=== PATIENT | female | born 1940 | race Caucasian/White ===

== ENCOUNTER 2017-01-16 16:51 | Inpatient (IN) | payer MEDICARE ==
[~2017-01-16] VITALS: Ht 165.1 cm; Wt 67.1 kg
[2017-01-16] MEDS ORDERED: DOCUSATE SODIUM 100 MG CAP PO PRN (17:15)
[2017-01-16] MEDS ORDERED: ACETAMINOPHEN 500 MG CPLT PO PRN (17:15)
[2017-01-16] MEDS ORDERED: SODIUM CHLORIDE FLUSH PRN IV FLUSH (17:15)
[2017-01-16 17:40] VITALS: BP 147/83; PULSE 80; RESP 20; TEMP 98.3; O2SAT 95
[2017-01-16] MEDS: ENOXAPARIN SODIUM 80 MG/0.8 ML SYRINGE SQ SCH (18:41)
[2017-01-16 18:52] LABS: AUTOMATED NEUTROPHIL # 5.7 TH/MM3 (1.8-7.7); BASOPHIL % 0.4 % (0.0-2.0); EOSINOPHIL # 0.1 TH/MM3 (0-0.4); EOSINOPHIL % 0.6 % (0.0-4.0); HEMO FLAGS DIFF FINAL; LYMPH % 24.9 % (9.0-44.0); LYMPHOCYTE # 2.1 TH/MM3 (1.0-4.8); MEAN CORPUSCULAR HEMOGLOBIN 28.9 PG (27.0-34.0); MEAN CORPUSCULAR HGB CONC 32.8 % (32.0-36.0); MONO % 8.1 % (0.0-8.0); PLATELET COUNT 265 TH/MM3 (150-450); RED CELL DISTRIBUTION WIDTH 12.8 % (11.6-17.2); WHITE BLOOD COUNT 8.6 TH/MM3 (4.0-11.0)
[2017-01-16 19:01] LABS: CHLORIDE 104 MEQ/L (98-107); SODIUM (NA) 137 MEQ/L (136-145)
[2017-01-16 19:05] LABS: ANION GAP 8 MEQ/L (5-15); BICARBONATE 25.3 MEQ/L (21.0-32.0); BLOOD UREA NITROGEN 12 MG/DL (7-18)
[2017-01-16 19:08] LABS: ALT (GPT) 19 U/L (10-53); AST (GOT) 14 U/L (15-37)
[2017-01-16 19:09] LABS: GLOMERULAR FILTRATION RATE 76 ML/MIN (>89)
[2017-01-16 19:10] LABS: TOTAL BILIRUBIN ADULT 0.6 MG/DL (0.2-1.0)
[2017-01-16 19:11] LABS: ALKALINE PHOSPHATASE 74 U/L (45-117)
[2017-01-16 19:14] LABS: PROTHROMBIN TIME - PATIENT 10.7 SEC (9.8-11.6)
[2017-01-16 19:23] LABS: WESTERGREN SEDIMENTATION RATE 37 mm/hr (0-30)
[2017-01-16 20:00] VITALS: BP 173/74; PULSE 74; RESP 16; TEMP 96.5; O2SAT 96
[2017-01-16] MEDS: SODIUM CHLORIDE FLUSH BID IV FLUSH SCH (20:26)
[2017-01-16] MEDS: WARFARIN SOD 5 MG TAB PO SCH (20:26)
--- NOTE | 2017-01-16 21:13 | MH ---
cc: FELIZ SEBASTIAN MD DATE OF ADMISSION 01/16/2017 CHIEF COMPLAINT Shortness of breath. DIAGNOSIS Acute bilateral pulmonary emboli, tobacco use, tachycardia. HISTORY OF PRESENT ILLNESS Ms. Bach is a 76-year-old white female recently known to my office as her first time visit was on 12/25/2016. She had come in at that time for increasing shortness of breath. At that time, with her findings and concerns, we had requested that she get a CT angiogram to rule out pulmonary emboli. She is a smoker who has been on estrogen therapy. She, however, canceled the CT scan that we had scheduled on the as she had family in town and she did not consent to doing it until today at which time she was found to have bilateral pulmonary emboli on a CT angiogram. She was directed to the hospital from my office today for treatment. The patient had previously noted shortness of breath ongoing for some time, but it has significantly worsened in August. She had apparently seen her dispatcher maintenance service at that time who had done a lower extremity ultrasound but did not find any DVT. It continued to progress. On her initial visit, we did find that with her smoking history it did appear that she had COPD on findings of spirometry in the office. She has not seen anyone other than a dispatcher maintenance service in years and had been no other preventative follow up. She had declined colonoscopies or other evaluation. PAST MEDICAL HISTORY Unremarkable prior to her start in my office. PAST SURGICAL HISTORY 1. Hysterectomy, 2. Tonsillectomy, 3. Bilateral cataract surgery 4. Varicose vein surgery at age 19 SOCIAL HISTORY She is . She has a significant other for the past 25 years. She is not currently employed. She has a high school education. She has generally two drinks per day 4-5 days per week. She has a half pack per day tobacco history, started in 1970 to current. She has no other drug or illicit substance use. MEDICATIONS 1. Menest 0.625 mg daily from the time of her hysterectomy until this past month when she weaned down and she just recently stopped. 2. We had prescribed her Anoro 12/25, however, she did not fill it due to cost. ALLERGIES NO KNOWN DRUG ALLERGIES. FAMILY HISTORY Dad at age 84 of colon cancer. He was a smoker. She had grandparents with stroke, [place] and at old age. Mom age 65 with COPD. She was a smoker. She has a sibling with osteoporosis. She has four children who are apparently healthy. IMMUNIZATIONS She declines vaccines. REVIEW OF SYSTEMS She has had no vision changes. No hearing changes. No sore throats or oral lesions. No neck discomfort. No adenopathy. She has had no fevers, sweats or chills. She has tolerated going coming off her menest well without any menopausal symptoms. She notes that her breathing seems better since she stopped the hormone therapy. She denies cough yet she does clear her voice and clear her throat several times during our conversation. No actual significant coughing, however, she has not had chest discomfort but has noted increased shortness of breath with activity. She is no longer going for her walks and doing things as she had been. However, she attributes that having had some calluses removed to her feet and then her feet were uncomfortable. She has had no nausea or vomiting. No blood in her stool, no black tarry stools. No other abdominal pain. No dysuria, hematuria or change in her urinary pattern. She has had no lower extremity edema. No pain to her legs. She has had no recent travel no other injuries to her extremities. She has not had any swelling into her arms. Remainder of review of systems is negative. PHYSICAL EXAMINATION VITAL SIGNS: Her height 64 inches, weight 150.4 pounds, blood pressure 130/90 with a heart rate of 140 today in the office, O2 sat was 90-91% on room air. GENERAL: She is a well-developed white female in no acute distress. Able to speak in full sentences without difficulty. She is somewhat anxious today. HEENT: Pupils are equal and reactive. Oropharynx is benign. She does have somewhat gravelly voice. NECK: Supple without lymphadenopathy. No thyromegaly. CARDIOVASCULAR: Slightly tachycardic at heart rate of 100 on my exam. She does have a 2/6 systolic ejection murmur audible at the right sternal border. LUNGS: Diffusely diminished but clear to auscultation bilaterally. No wheezes or rhonchi. ABDOMEN: Soft with normal bowel sounds. No hepatosplenomegaly or masses noted. She has a lower horizontal abdominal scar, suprapubic abdominal scar well-healed from her prior hysterectomy. LOWER EXTREMITIES: No calf tenderness. Negative Homans. She does have some changes due to varicositie and spider veins. has She no edema. 2+ dorsalis pedis pulses. Good range of motion of the feet, hips and knees. She has no edema noted to the arms. She has 2+ pulses. No signs of ischemia. IMAGING STUDIES CTA of the thorax done today. I received a wet read call from the radiologist and he states that she has filling defects to the pulmonary arteries of both upper and lower lobes. There is no saddle embolus observed but there is a decent thrombus load appreciated. She has diffuse emphysematous changes, scarring in the right middle lobe and lingula, no mass or infiltrate. There was no hilar adenopathy or axillary adenopathy. We also had her do an echocardiogram due to her cardiac murmur and symptomatology and this showed sinus tachycardia at 140 on exam. She had a severely enlarged right atrium, moderately enlarged left atrium, mildly calcified mitral annulus, LV hypertrophy moderate, moderate tricuspid regurgitation and moderate aortic insufficiency with a mildly dilated aortic root, ejection fraction of 65-70%, mild elevation of the pulmonary artery pressure. Labs are pending. ASSESSMENT/PLAN 1. Bilateral pulmonary emboli. Uncertain as to the chronicity but speaking with the radiologist he does not suspect that it has been there for months. After long discussion with the patient, she did consent to hospitalization and putting her on Lovenox 1 mg/kg subcu b.i.d. Starting her on Coumadin therapy as she has no secondary insurance and no prescription. We will check coagulation profile to see if there is another reason for her pulmonary emboli, most likely related to her tobacco use and estrogen therapy. However she does have family history of colon cancer and she has never done any colon cancer screening, although she is not symptomatic. We have completely stopped her hormone therapy and she will be completely quitting tobacco use as of today. Risks, benefits and side effects of the Coumadin have been discussed with the patient. I am not putting her on the new novel anticoagulants due to cost factors at this time. We will see if she cannot be able to access the secondary insurance to help with her costs. We will place her on telemetry due to her tachycardia. 2. Tachycardia likely secondary to her anxiety as well as a pulmonary embolus. she was without any hypoxia on exam today. 3. Tobacco use. She will be stopping those now. She previously had a half a pack per day cigarette use as of yesterday and she was down to five cigarettes per day. I do not believe she will need any nicotine replacement, but if she does we can provide that while she is in the hospital if absolutely necessary. 4. Aortic insufficiency. We will continue to follow that as an outpatient. She has no signs of congestive failure at this time. 5. Chronic obstructive pulmonary disease. She has not been on any inhalers at this time. I did try to get her inhaler therapy as she did have benefit on spirometry with albuterol. However, cost was prohibitive without any insurance coverage. She may show significant improvement in her symptomatology in breathing just by treatment of her pulmonary embolus. We will see how she does and gradually increase activity as tolerated. 6. Family history of colon cancer. She has not had any evaluation for that in the past. Would recommend that she does get evaluation once she has completed her therapy for the pulmonary embolus unless she becomes symptomatic prior to that time. MD GILBERT Melendrez/ /7:51 PM /8:37 PM JONY
[2017-01-16 23:15] VITALS: BP 144/102; PULSE 132; RESP 20; TEMP 97.4; O2SAT 97
[2017-01-17] VITALS (8 sets, daily range): BP systolic 117–152; BP diastolic 63–80; PULSE 61–142; RESP 18–20; TEMP 96–97.8; O2SAT 94–97
[2017-01-17] MEDS ORDERED: METOPROLOL TARTRATE 25 MG TAB PO SCH
[2017-01-17] MEDS: ENOXAPARIN SODIUM 80 MG/0.8 ML SYRINGE SQ SCH ×2 (06:13→17:16)
[2017-01-17] MEDS ORDERED: SODIUM CHLORIDE 0.9% FLUSH 10 ML FLUSH IVF PRN ×2 (08:00→21:45)
[2017-01-17] MEDS ORDERED: DILTIAZEM INJ 125 MG in SODIUM CHLORIDE 0.9% INJ 100 ML IV SCH (08:00)
--- NOTE | 2017-01-17 08:19 | HHI.FPPN ---
Subjective Remarks She really wants to go home. FEels that her elevated HR is anxiety from being in the hospital. Notes she hasn't been sick in the past, hasn't ever been in the hospital before and wants to treat this at home. long discussion as to why that isn't a good idea. She feels her SOB is better. Denies CP. Notes some hot flashes since stopping the menest (estrogen). She repeats her nightly habit is vodka, water, splash of soda (2 drinks with each drink with 1-2 shots of vodka) and a cigarette. States she is starving this AM and upset about not getting breakfast (ordered u/s of the abdomen today so she is NPO since midnight until that is done this AM). She denies any other drug use. We discussed withdrawl symptoms (last drink was 01/15/17). She had cut back to 5 cigarettes per day in the past month, doesn't want a nicotene patch but states she really wanted a cigarette during the night. She noted leg cramps last PM and thought it was related to the lovenox. No bleeding. Nurse called me at 11 last PM stating she had SVT at 140. I ordered the metoprolol. I didn't receive any further calls during the night but now see that she had afib/flutter wtih RVR running in the 140s most of the night although she had a few episodes about 2am with sinus rhythm in the 40s. Objective Vitals Vital Signs Date Time Temp Pulse Resp B/P Pulse Ox O2 Delivery O2 Flow Rate FiO2 01/17/17 04:00 97.8 61 20 142/68 95 Manual Cuff/Auscultation 01/16/17 23:15 97.4 132 20 144/102 97 Automatic Cuff 01/16/17 20:00 96.5 74 16 173/74 96 01/16/17 17:40 98.3 80 20 147/83 95 I/O 01/16/17 01/16/17 01/16/17 01/17/17 01/17/17 01/17/17 07:00 15:00 23:00 07:00 15:00 23:00 Intake Total 250 ml 480 ml Balance 250 ml 480 ml Intake Oral 250 ml 480 ml # Voids 5 # Bowel Movements 0 Result Diagram: 01/16/17183401/16/17 183 Imaging CTA at [facility] 01/16/17--bilateral upper and lower lobe pulmonary emboli, COPD changes ECHO at [facility] 01/16/17--moderate aortic regurgitation, severe LVH, dilated atria Objective Remarks Gen: sitting up in chair, anxious, speaking rapidly, wanting to go home. Frustrated with IV and blood draws, stating I told her she could go home today ( the nursing board on her wall said discharge 01/17, however I had discussed 3-5 days to get coumadin therapeutic with her yesterday) CV: tachy at 140, distant Lung: clear but diminished Ext: no edema, no calf tenderness, IV right forearm Urinary Catheter: No Vascular Central Line Catheter: No A/P Problem List: (1) Pulmonary embolism Status: Acute Plan: Bilateral upper and lower lobe emboli. Likely ongoing since prior to when we first saw her in the office (symptoms of SOB started in August 2016 )--she cancelled the CTA appointment we had for her on 12/28 due to family being in town. Continue lovenox and get coumadin to therapeutic. She notes she usually eats a lot of greens and may need higher doses. REemphasized the increased risk of if not treated appropriately and reason for being in the hospital at this time. She doesn't have medication coverage or secondary with her medicare and can't afford the factor Xa inhibitors. She wants discharge to home today and I have discussed how that is not medically ethical in her situation and I can not in good consciousness discharge her with her ongoing issues, padma given her HR issues and the PE and risk of . We discussed implications of leaving AMA and not treating her current disease appropriately. She is in denial of her diagnosis stating that she has always felt well and never had medical issues. Tried to explain her medical issues to her understanding at length today. Will have case management try to help her with financial issues today. (2) Atrial fibrillation with rapid ventricular response Status: Acute Plan: She has had regular HR controlled in the office on 12/27, 01/15 and 01/16. Found variable afib/sinus on telemetry overnight but most consistantly in afib with RVR overnight last PM. STart on cardizem drip to control and exchange engineer to oral when controlled. Cardiology consulted. She has a very abnormal ECHO done yesterday at [facility] (LVH, aortic valve regurg, atrial dilation) making me think that the afib and PE has been ongoing longer than she was aware of. She again contributes this all to anxiety. WE discussed increased stroke risk, need to control HR, and get her on the coumadin. Risks of leaving AMA discussed with her today. (3) Anxiety Status: Acute Plan: Likely due to hospitalization and new onset of medical issues. I am concerned about potential for ETOH w/d and will add ativan at this time. She states 1-2 drinks per night but the ETOH content may be higher than that. Continue to monitor. She denies any other drug use. (4) Tobacco use Status: Chronic Plan: was down to 5 cigs per day prior to admission. No need for nicoderm at this time. abrupt cessation likely contributing to some of her anxiety also. Problem Qualifiers (1) Pulmonary embolism: Michell Engle MD Jan 17, 2017 08:19
[2017-01-17] MEDS: SODIUM CHLORIDE FLUSH BID IV FLUSH SCH ×2 (08:43→23:46)
--- NOTE | 2017-01-17 10:04 | RADRPT ---
EXAM DATE/TIME: 01/17/2017 08:20 [facility] COMPARISON: No previous studies available for comparison. INDICATIONS : Evaluate for intrabdominal abnormalities. MEDICAL HISTORY : Dyspnea. SURGICAL HISTORY : Partial hysterectomy. ENCOUNTER: Initial ACUITY: 1 day PAIN SCORE: 0/10 LOCATION: Abdomen. MEASUREMENTS: LIVER: 17.5 cm length COMMON DUCT: 4 mm RIGHT KIDNEY: 10.2 x 5.3 x 4.2 cm LEFT KIDNEY: 10.7 x 4.7 x 4.3 cm SPLEEN: 6.6 cm length AORTA: 2.4cm maximal FINDINGS: LIVER: Normal echotexture without focal lesion or ductal dilatation. COMMON DUCT: No intraluminal mass or stone visualized. GALLBLADDER: Contains no stones, demonstrates no wall thickening or pericholecystic fluid. PANCREAS: The visualized portions are within normal limits. RIGHT KIDNEY: No hydronephrosis, stone or mass. LEFT KIDNEY: No hydronephrosis, stone or mass. SPLEEN: No focal lesion. AORTA: Non aneurysmal. IVC: Within normal limits. CONCLUSION: Focally unremarkable sonographic appearance of the abdomen Quentin Cutler MD on January 17, 2017 at 10:01 Board Certified Radiologist. This report was verified electronically.
--- NOTE | 2017-01-17 11:42 | HHI.PR ---
Addendum to Inpatient Note Addendum Reason: Additional Documentation Additional Information I spoke with her daughter at length this AM regarding her issues with patients consent. Also I just got a call from nurse noting that her HR suddenly went from 140 to 60 and seems more regular. Will get another EKG and cardiac enzymes now. Will put her on oral cardizem and stop the IV if she stays rate controlled. Order placed. Michell Lacey MD Jan 17, 2017 11:42
[2017-01-17] MEDS ORDERED: LORazepam 0.5 MG TAB PO PRN (11:45)
[2017-01-17] MEDS: DILTIAZEM-CD 120 MG CAP ER PO SCH (13:14)
[2017-01-17] MEDS: WARFARIN SOD 5 MG TAB PO SCH (17:16)
[2017-01-17] MEDS ORDERED: DILTIAZEM DRIP INJ PREMIX 125 ML IV SCH (21:45)
[2017-01-17] MEDS ORDERED: DILTIAZEM HCL 60 MG TAB PO ONE (21:45)
--- NOTE | 2017-01-17 21:51 | HHI.PR ---
Addendum to Inpatient Note Addendum Reason: Additional Documentation Additional Information Received a call from Ana, who was caring for pt. She notes she was in sinus, controlled HR until 8:45 when she suddenly changed to an aflutter with HR running in the 130-140 range. Asymptomatic, BP in the 130/80 range. I ordered 60mg of immediate release cardizem (she previously had cardizem CD). If that doesn't get her HR <110 in an hour will start her back on the cardizem drip. Orders entered. Michell Lacey MD Jan 17, 2017 21:51
--- NOTE | 2017-01-17 21:58 | MB ---
cc: ERAN HENRIQUEZ DATE OF CONSULTATION: 01/17/2017 REASON FOR CONSULTATION: HISTORY OF PRESENT ILLNESS: Ms. Bach is a very pleasant 76-year-old white female with no previous cardiac history. She has been evaluated for shortness of breath recently and was found to have pulmonary embolism and no evidence of DVT. She had shortness of breath but no chest pain. Her shortness of breath has now improved with anticoagulation. She presented with atrial flutter with rapid ventricular response which has now spontaneously converted to sinus rhythm. PAST MEDICAL HISTORY, PAST SURGICAL HISTORY: 1. Positive for hysterectomy. 2. Tonsillectomy 3. Bilateral cataract surgery 4. History of varicose vein surgery. MEDICATIONS Estrogen ALLERGIES None. SOCIAL HISTORY The patient is a smoker. She drinks a 2-3 drinks a day. She is . FAMILY HISTORY: Positive for heart disease in her father. REVIEW OF SYSTEMS: Otherwise negative. PHYSICAL EXAMINATION: VITAL SIGNS: Blood pressure was 152/70, pulse 64 regular. HEENT: Negative. 2+ carotid upstrokes. No bruits. Lungs: Clear. Heart: Regular with no murmur, gallop or rub. Extremities: No edema. Bilateral lower extremity varicosities. Neurologic: Grossly intact. EKG was reviewed and showed atrial flutter with 2:1 block and rapid ventricular response. Follow up EKG showed normal sinus rhythm, left axis, left anterior fascicular block and anterior T-wave inversions. LABORATORY DATA Hemoglobin 14.4, potassium 4.0, creatinine 0.7, AST and ALT normal, troponin 0.04, CK 66. DIAGNOSIS 5. Atrial flutter with rapid ventricular response. 6. Bilateral pulmonary embolism. 7. Smoking. 8. Estrogen use. 9. COPD. DISPOSITION Ms. Bach has spontaneously converted to sinus rhythm. Recommend continued anticoagulation with enoxaparin and warfarin with discontinuing enoxaparin once we have therapeutic overlap. Recommend to continue diltiazem. She is a smoker and also has been on estrogen therapy which has been shown in studies to increase risk of pulmonary embolism. She will be monitored on telemetry. I will see her back for follow up in our office after discharge. MD GINGER Hancock/MARC /7:22 PM 9:40 PM
[2017-01-17] MEDS ORDERED: DILTIAZEM 125 MG/NS 100 ML IV SCH ×2 (22:00)
[2017-01-18] VITALS (10 sets, daily range): BP systolic 123–148; BP diastolic 63–91; PULSE 57–82; RESP 19–20; TEMP 96.7–98; O2SAT 95–98
[2017-01-18] MEDS: ENOXAPARIN SODIUM 80 MG/0.8 ML SYRINGE SQ SCH ×2 (06:08→17:01)
[2017-01-18] MEDS: DILTIAZEM-CD 120 MG CAP ER PO SCH (06:21)
[2017-01-18 06:25] LABS: PROTHROMBIN TIME - PATIENT 11.3 SEC (9.8-11.6)
--- NOTE | 2017-01-18 08:11 | EKG ---
Date Performed: 01/17/2017 Time Performed: 08:48:37 PTAGE: 76 years EKG: ECTOPIC ATRIAL TACHYCARDIA, POSSIBLE ATRIAL FLUTTER INTRAVENTRICULAR CONDUCTION DELAY INFER IOR MYOCARDIAL INFARCTION ABNORMAL ECG NO PREVIOUS TRACING DOCTOR: Shaan Esquivel Interpretating Date/Time 01/18/2017 08:06:05
--- NOTE | 2017-01-18 08:14 | EKG ---
Date Performed: 01/17/2017 Time Performed: 12:07:49 PTAGE: 76 years EKG: Sinus rhythm LEFT ANTERIOR FASCICULAR BLOCK POSSIBLE INFERIOR MYOCARDIAL INFARCTION MARKED T-WAVE ABNORMALITY, CO NSIDER ANTEROLATERAL ISCHEMIA ABNORMAL ECG PREVIOUS TRACING : 01/17/2017 08.48 DOCTOR: Shaan Esquivel Interpretating Date/Time 01/18/2017 08:07:14
[2017-01-18] MEDS: SODIUM CHLORIDE FLUSH BID IV FLUSH SCH ×2 (08:23→20:46)
--- NOTE | 2017-01-18 08:35 | HHI.FPPN ---
Subjective Remarks Feeling well. Not aware of the afib (no CP, SOB, palpitation feeling). She converted to sinus with cardizem yesterday (IV) and maintained sinus until about 8:45 last PM when she rapidly went back to afib with HR in the 140 range. Added dose of immediate cardizem controlled her through the night until she had blood drawn this AM and she went back to afib in the 140s. She is back in sinus now. FEels her breathing is better. Again discussed her meds, reasons for hospitalization vs being at home. She notes her daughter called about secondary insurance and she has to wait until open enrollment in March. She wants to go home. Feels her heart rate is related to anxiety of being in the hospital. Objective Vitals Vital Signs Date Time Temp Pulse Resp B/P Pulse Ox O2 Delivery O2 Flow Rate FiO2 01/18/17 08:16 98.0 68 19 142/91 95 01/18/17 06:27 82 01/18/17 04:00 96.7 69 20 148/69 95 01/18/17 00:10 57 01/18/17 00:00 97.0 61 20 133/63 97 01/17/17 21:25 96.0 142 20 139/80 95 01/17/17 20:45 134 01/17/17 20:10 87 01/17/17 20:00 97.4 68 20 137/68 96 01/17/17 16:00 97.8 64 18 152/70 96 01/17/17 12:00 97.7 67 18 117/63 94 I/O 01/17/17 01/17/17 01/17/17 01/18/17 01/18/17 01/18/17 07:00 15:00 23:00 07:00 15:00 23:00 Intake Total 480 ml 2 ml 533 ml 0 ml Balance 480 ml 2 ml 533 ml 0 ml Intake Oral 480 ml 480 ml 0 ml IV Total 2 ml 53 ml # Voids 5 3 0 # Bowel Movements 0 1 0 Result Diagram: 01/16/17183401/16/171834 Objective Remarks Gen: sitting up in chair, anxious, speaking rapidly, wanting to go home. Frustrated with IV and blood draws CV: regular, II/ murmur to the right sternal border, distant Lung: clear but diminished, no wheezing Ext: no edema, no calf tenderness, IV right forearm, bruise to the right antecubital fossa from blood work Urinary Catheter: No Vascular Central Line Catheter: No A/P Problem List: (1) Pulmonary embolism Status: Acute Plan: Bilateral upper and lower lobe emboli. Likely ongoing since prior to when we first saw her in the office (symptoms of SOB started in August 2016 )--she cancelled the CTA appointment we had for her on 12/28 due to family being in town. Continue lovenox and get coumadin to therapeutic. She notes she usually eats a lot of greens and may need higher doses. REemphasized the increased risk of if not treated appropriately and reason for being in the hospital at this time. She doesn't have medication coverage or secondary with her medicare and can't afford the factor Xa inhibitors. Increase coumadin to 10mg daily, INR daily until 2-3. I will call her daughter, Jarocho, per her request to update on her status. (2) Atrial fibrillation with rapid ventricular response Status: Acute Plan: She has had regular HR controlled in the office on 12/27, 01/15 and 01/16. Found variable afib/sinus on telemetry overnight but most consistantly in afib with RVR overnight last PM. STart on cardizem drip to control and address change clerk to oral when controlled. Cardiology consulted. She has a very abnormal ECHO done yesterday at [facility] (LVH, aortic valve regurg, atrial dilation) making me think that the afib and PE has been ongoing longer than she was aware of. She again contributes this all to anxiety. WE discussed increased stroke risk, need to control HR, and get her on the coumadin. HR is better but still having episodes of HR to the 140s. Will increase the cardizem dosing today and see how she does. BP controlled. (3) Anxiety Status: Acute Plan: Likely due to hospitalization and new onset of medical issues. I am concerned about potential for ETOH w/d and will add ativan at this time. She states 1-2 drinks per night but the ETOH content may be higher than that. Continue to monitor. She denies any other drug use. (4) Tobacco use Status: Chronic Plan: was down to 5 cigs per day prior to admission. No need for nicoderm at this time. abrupt cessation likely contributing to some of her anxiety also. Problem Qualifiers (1) Pulmonary embolism: Qualified Code: I26.99 - Other pulmonary embolism without acute cor pulmonale, unspecified chronicity Michell Engle MD Jan 18, 2017 08:34
[2017-01-18] MEDS ORDERED: WARFARIN SOD 10 MG TAB PO SCH (16:00)
[2017-01-18] MEDS ORDERED: DO NOT ADM ANY ANTICOAGULANT DRUGS OTHER PRN (21:30)
[2017-01-19] VITALS: BP 145/60; PULSE 66; RESP 18; TEMP 97.9; O2SAT 96
[2017-01-19 03:51] LABS: BETA2 GLYCOPROTEIN I AB IGA LESS THAN 9.0 SAU (< OR = 20)
[2017-01-19 04:00] VITALS: BP 150/62; PULSE 67; RESP 18; TEMP 97.6; O2SAT 96
[2017-01-19] MEDS: ENOXAPARIN SODIUM 80 MG/0.8 ML SYRINGE SQ SCH (06:19)
[2017-01-19 06:43] LABS: INTERNATIONAL NORMALIZED RATIO 1.3 RATIO
[2017-01-19 07:51] VITALS: PULSE 65
[2017-01-19] MEDS ORDERED: XARE15TA PO (08:01)
[2017-01-19] MEDS ORDERED: WARF-21 PO (08:01)
[2017-01-19] MEDS ORDERED: CARD120C4 PO (08:01)
[2017-01-19] MEDS: DILTIAZEM-CD 120 MG CAP ER PO SCH (08:05)
[2017-01-19] MEDS: SODIUM CHLORIDE FLUSH BID IV FLUSH SCH (08:05)
--- NOTE | 2017-01-19 08:09 | HHI.DS ---
Discharge Summary Admission Date Jan 16, 2017 at 16:51 Discharge Date: Jan 19, 2017 Admitting Diagnosis (1) Pulmonary embolism Diagnosis: Principal Plan: Bilateral upper and lower lobe emboli. Likely ongoing since prior to when we first saw her in the office (symptoms of SOB started in August 2016 )--she cancelled the CTA appointment we had for her on 12/28 due to family being in town. Continue lovenox and get coumadin to therapeutic. She notes she usually eats a lot of greens and may need higher doses. REemphasized the increased risk of if not treated appropriately and reason for being in the hospital at this time. She doesn't have medication coverage or secondary with her medicare and can't afford the factor Xa inhibitors. She really wants to go home, feeling well and aware of risks. I can get her a coupon for xarelto. Start first dose this AM then continue 15mg BID until her INR is 2-3. Go to warfarin 7.5mg daily over the weekend and check INR in my office on Sunday and we will direct her better regarding when to stop the xarelto and dosing of the coumadin. She has a list of VIt K containing foods to be aware of. return for increased SOB, chest pain, feeling worse. (2) Atrial fibrillation with rapid ventricular response Diagnosis: Principal Plan: She has had regular HR controlled in the office on 12/27, 01/15 and 01/16. Found variable afib/sinus on telemetry overnight but most consistantly in afib with RVR overnight last PM. She has a very abnormal ECHO done at [facility] (LVH, aortic valve regurg, atrial dilation) making me think that the afib and PE has been ongoing longer than she was aware of. She again contributes this all to anxiety. WE discussed increased stroke risk, need to control HR, and get her on the coumadin. HR is better but still having episodes of HR to the 140s but shorter lasting and not feeling bad. In discussion with her, she has been having these episodes for more than 2 years but didn't seek care and didn't mention it to Dr. Latham at her annual appointments. (3) Anxiety Diagnosis: Secondary Plan: Likely due to hospitalization and new onset of medical issues. I am concerned about potential for ETOH w/d and will add ativan at this time. She states 1-2 drinks per night but the ETOH content may be higher than that. Continue to monitor. She denies any other drug use. (4) Tobacco use Diagnosis: Secondary Plan: was down to 5 cigs per day prior to admission. No need for nicoderm at this time. abrupt cessation likely contributing to some of her anxiety also. Consultants cardiology--Ivon. I didn't realize she already had an appointment with Dr. Frnakel scheduled for 01/29 as outpatient. Brief History 76 yo WF with increasing SOB prior to admit found to have bilateral PE and afib with RVR. ADmitted for control CBC/BMP: 01/16/17 1835 01/16/17 183 Significant Findings Laboratory Tests Test 01/16/17 01/19/17 18:35 05:05 Estimat Glomerular Filtration 76 ML/MIN (>89) Rate Random Glucose 124 MG/DL (74-106) Aspartate Amino Transf 14 U/L (15-37) (AST/SGOT) Monocytes (%) (Auto) 8.1 % (0.0-8.0) Erythrocyte Sedimentation Rate 37 mm/hr (0-30) Prothrombin Time 14.0 SEC (9.8-11.6) PE at Discharge Gen: sitting up in chair, calmer, wanting to go home. CV: irregular, II/ murmur to the right sternal border, distant, rate low 100s Lung: clear but diminished, no wheezing Ext: no edema, no calf tenderness, IV right forearm, bruise to the right antecubital fossa from blood work Hospital Course Lots of education given to her by me during hospitalization regarding afib and PE, need for meds, etc. Symptoms have been ongoing for more than 2 years so suspect her afib has been ongoing at least 2 years. Advised pt she will need lifetime anticoagulation and needs better control of afib HR (intermittant). May consider antiarrythmic with cardiology. Doubt she would be a candidate for ablation with her ECHO abnormalities and likely intermittant afib with RVR ongoing more than 2 years. I wrote out her med dosing, diagnosis, f/u appointments for her today. She will call my office on Sunday to get INR done that day. Pt Condition on Discharge: Good Discharge Disposition: Discharge Home Discharge Instructions DIET: Follow Instructions for: Heart Healthy Diet, Coumadin (Warfarin) Diet Activities you can perform: Regular-No Restrictions Other Activity Instructions: IF SOB, back down on intensity of activity Michell Engle MD Jan 19, 2017 08:09
[2017-01-19 08:31] VITALS: BP 162/87; PULSE 70; RESP 19; TEMP 97.1; O2SAT 94
[2017-01-19] MEDS ORDERED: RIVAROXABAN 15 MG TAB PO ONE (09:00)
[2017-01-21 11:53] LABS: PHOS SERINE AB IGA LESS THAN 20 U/mL (()); PHOS SERINE AB IGG LESS THAN 10 U/mL (()); PHOS SERINE AB IGM LESS THAN 25 U/mL (())
== END 2017-01-19 10:10 | disposition home or self-care (01) | DRG 176 ==
LOC: PH3A 16:51
PROVIDERS: ADMIT Family Medicine; ATTEND Family Medicine
DX: I26.99 Other pulmonary embolism without acute cor pulmonale (principal); I48.92 Unspecified atrial flutter; J44.9 Chronic obstructive pulmonary disease, unspecified; I48.91 Unspecified atrial fibrillation; I35.1 Nonrheumatic aortic (valve) insufficiency; F17.210 Nicotine dependence, cigarettes, uncomplicated; Z79.890 Hormone replacement therapy; R00.0 Tachycardia, unspecified; F41.9 Anxiety disorder, unspecified; Z80.0 Family history of malignant neoplasm of digestive organs
CPT/HCPCS: 76700; 80053; 81241; 82550; 84484; 85025; 85303; 85306; 85610; 85652; 86038; 86146; 86147; 86148; 93005; J1650

== ENCOUNTER → 2017-09-04 | Outpatient (CLI) | payer MEDICARE ==
[~2017-09-04] MED LIST: CARD120C4 PO; WARF-21 PO; XARE15TA PO
[2017-09-04 16:31] LABS: CHLORIDE 101 MEQ/L (98-107); SODIUM (NA) 136 MEQ/L (136-145)
[2017-09-04 16:34] LABS: CALCIUM 9.5 MG/DL (8.5-10.1)
[2017-09-04 16:35] LABS: ALBUMIN 3.7 GM/DL (3.4-5.0); BICARBONATE 30.1 MEQ/L (21.0-32.0); BLOOD UREA NITROGEN 16 MG/DL (7-18); GLUCOSE,RANDOM 83 MG/DL (74-106)
[2017-09-04 16:38] LABS: ALT (GPT) 29 U/L (10-53); AST (GOT) 20 U/L (15-37); CREATININE 0.72 MG/DL (0.50-1.00); GLOMERULAR FILTRATION RATE 78 ML/MIN (>89)
[2017-09-04 16:39] LABS: TOTAL BILIRUBIN ADULT 0.3 MG/DL (0.2-1.0); TOTAL PROTEIN 8.1 GM/DL (6.4-8.2)
[2017-09-04 16:41] LABS: ALKALINE PHOSPHATASE 79 U/L (45-117)
[2017-09-04 18:03] LABS: AUTOMATED NEUTROPHIL # 2.9 TH/MM3 (1.8-7.7); BASOPHIL % 0.3 % (0.0-2.0); EOSINOPHIL # 0.2 TH/MM3 (0-0.4); EOSINOPHIL % 2.6 % (0.0-4.0); HEMATOCRIT 40.6 % (35.0-46.0); HEMOGLOBIN 14.2 GM/DL (11.6-15.3); LYMPHOCYTE # 2.8 TH/MM3 (1.0-4.8); MEAN CELL VOLUME 89.1 FL (80.0-100.0); MEAN CORPUSCULAR HEMOGLOBIN 31.2 PG (27.0-34.0); MEAN PLATELET VOLUME 9.5 FL (7.0-11.0); MONO % 10.6 % (0.0-8.0); MONOCYTE # 0.7 TH/MM3 (0-0.9); NEUT % 44.5 % (16.0-70.0); PLATELET COUNT 263 TH/MM3 (150-450); RED BLOOD COUNT 4.56 MIL/MM3 (4.00-5.30); RED CELL DISTRIBUTION WIDTH 14.2 % (11.6-17.2); WHITE BLOOD COUNT 6.6 TH/MM3 (4.0-11.0)
== END ==
LOC: PLAB 12:44
PROVIDERS: ATTEND Family Medicine
DX: I48.91 Unspecified atrial fibrillation (principal); I10 Essential (primary) hypertension
CPT/HCPCS: 36415; 80053; 85025